=== PATIENT | female | born 1990 | race Two or more races ===

== ENCOUNTER → 2019-10-03 | Outpatient (CLI) | payer BC ==
--- NOTE | 2019-10-03 19:49 | RADIOLOGY REPORT (SQ) ---
EXAM DESCRIPTION: CHEST PA/LATERAL COMPLETED DATE/TIME: 10/03/2019 5:51 pm REASON FOR STUDY: ACQUIRED DEFORMITY OF CHEST AND RIB COMPARISON: None. EXAM PARAMETERS: NUMBER OF VIEWS: two views TECHNIQUE: Digital Frontal and Lateral radiographic views of the chest acquired. RADIATION DOSE: NA LIMITATIONS: none FINDINGS: LUNGS AND PLEURA: No opacities, masses or pneumothorax. No pleural effusion. MEDIASTINUM AND HILAR STRUCTURES: No masses or contour abnormalities. HEART AND VASCULAR STRUCTURES: Heart normal size. No evidence for failure. BONES: No acute findings. HARDWARE: None in the chest. OTHER: No other significant finding. IMPRESSION: NO SIGNIFICANT RADIOGRAPHIC FINDING IN THE CHEST. TECHNICAL DOCUMENTATION: JOB ID: [id number] [employer]- All Rights Reserved Reading location - IP/workstation name: [email or web address]
== END ==
LOC: OD 15:57
PROVIDERS: ATTEND Internal Medicine
DX: M95.4 Acquired deformity of chest and rib (principal)
CPT/HCPCS: 71046

== ENCOUNTER → 2019-10-11 | Outpatient (CLI) | payer BC ==
--- NOTE | 2019-10-11 15:09 | RADIOLOGY REPORT (SQ) ---
EXAM DESCRIPTION: CT CHEST WITHOUT COMPLETED DATE/TIME: 10/11/2019 2:05 pm REASON FOR STUDY: M95.4 ACQUIRED DEFORMITY OF CHEST AND RIB M95.4 ACQUIRED DEFORMITY OF CHEST AND R IB COMPARISON: PA and lateral views of the chest from 10/03/2019. TECHNIQUE: CT scan performed of the chest without intravenous contrast. Images reviewed with lung, soft tissue and bone windows. Reconstructed coronal and sagittal MPR images reviewed. All images st ored on PACS. All CT scanners at this facility use dose modulation, iterative reconstruction, and/or weight based d osing when appropriate to reduce radiation dose to as low as reasonably achievable (ALARA). [facility]: Dose Right [facility]: CareDose [facility]: Dose Right [facility]: Teradose 4D [facility]: Downstream RADIATION DOSE: CT Rad equipment meets quality standard of care and radiation dose reduction techniq ues were employed. CTDIvol: 4.8 mGy. DLP: 194 mGy-cm. LIMITATIONS: No technical limitations. FINDINGS: LUNGS AND PLEURA: The trachea and main bronchi are patent. There is no bronchiectasis or mucus plugging. There is no consolidation or ground-glass opacification. There is no nodular mass. There is no pleural fluid, thickening or calcification. HILAR AND MEDIASTINAL STRUCTURES: Evaluation of the stanley for adenopathy is limited due to the absence of intravenous contrast. There is no mediastinal mass or adenopathy. HEART AND VASCULAR STRUCTURES: Standard 3 vessel arch. There is no aneurysm of the thoracic aorta or evidence of intramural hematoma. There is no cardiomegaly or pericardial effusion. UPPER ABDOMEN: No acute findings THYROID AND OTHER SOFT TISSUES: No masses or adenopathy. BONES: No fracture or osseous lesion. HARDWARE: None in the chest. OTHER: No other findings. IMPRESSION: No acute cardiopulmonary process. TECHNICAL DOCUMENTATION: JOB ID: [id number] Quality ID # [id number]: Final reports with documentation of one or more dose reduction techniques (e.g., Au tomated exposure control, adjustment of the mA and/or kV according to patient size, use of iterative reconstruction technique) 2010 [employer]- All Rights Reserved Reading location - IP/workstation name: [email or web address]
== END ==
LOC: RAD 13:45
PROVIDERS: ATTEND Internal Medicine
DX: M95.4 Acquired deformity of chest and rib (principal)
CPT/HCPCS: 71250